=== PATIENT | male | born 1965 | race Caucasian/White ===

== ENCOUNTER 2019-06-29 22:48 | Emergency (ER) | payer OTHER, SELFPAY ==
[2019-06-29 23:04] VITALS: BP 133/82; PULSE 80; RESP 16; TEMP 37.2; O2SAT 100
--- NOTE | 2019-06-29 23:24 | ED.SKABFB ---
HPI - Skin/Abscess/Foreign Bdy General Chief complaint: Skin/Abscess/Foreign Body Stated complaint: boil in groin Time Seen by Provider: 06/29/19 23:09 Source: patient and RN notes reviewed Mode of arrival: ambulatory Limitations: no limitations History of Present Illness HPI narrative: Pt is a 53 y/o male who presents to the ED with c/o boil on his rt medial thigh. He notes that he was evaluated by his vmware engineer for the boil last week, and states that he was advised it wasn't infectious. Pt notes that his physician poked the wound twice during the evaluation. He currently reports pain around the boil, but denies any fever, chills, or other symptoms. He states that he recently finished 3 rounds of antibiotics in May. MD complaint: abscess/boil Location: RLE (rt medial thigh) Associated symptoms: other (pain around the boil on medial rt thigh) Treatments prior to arrival: none Related Data Allergies Allergy/AdvReac Type Severity Reaction Status Date / Time nystatin Allergy Unknown Verified 05/25/14 13:12 Review of Systems Review of Systems: All systems reviewed & are unremarkable except as noted in HPI and below Constitutional: Constitutional: Denies chills and Denies fever(s) Integumentary/Breasts: Skin/Breast: Reports skin pain (pain around boil on rt medial thigh) and Reports other (boil on rt medial thigh) PMFSH Past Medical History Medical History Back pain Diverticulitis Family history- stomach cancer GERD (gastroesophageal reflux disease) High cholesterol History of rectal polyps Irritable bowel syndrome with constipation Kidney stones Peripheral neuropathy Surgical History Surgical History History of spinal fusion Hx of appendectomy Hx of cholecystectomy Family History Family History (Updated 05/25/14 @ 13:25 by DOCTOR UNKNOWN) Mother Hypertension Family history of anemia Father Family history of chronic obstructive pulmonary disease Other Diabetes mellitus Social History Social History Years smoked: 25 Smoking status: Former smoker Tobacco type: cigarettes Alcohol intake: current Drinks per week: 1 Substance use type: marijuana Exam Narrative: Exam Narrative: GENERAL: Well-appearing, well-nourished, and in no acute distress. HEAD: Normocephalic, atraumatic. EXTREMITIES: Normal range of motion. No edema. SKIN: Warm, dry, no rash. Sebaceous cyst right inner thigh with slight redness but no warmth. NEURO: Alert and oriented x3. PSYCH: Normal mood and affect. Course Course Emergency Course: Needle aspiration sebaceous cyst with some contents expressed. No evidence of active infection. There is no cellulitis surrounding the cystic region, recommend warm compresses and he can attempt to continue express material. Recommend follow-up with his vmware engineer for excision if continued irritation. Vital Signs Vital signs: Vital Signs Temperature 99.0 F 06/29/19 23:04 Pulse Rate 80 06/29/19 23:04 Respiratory Rate 16 06/29/19 23:04 Blood Pressure 133/82 06/29/19 23:04 Pulse Oximetry 100 06/29/19 23:04 Temperature 99.0 F 06/29/19 23:04 Pulse Rate 80 06/29/19 23:04 Respiratory Rate 16 06/29/19 23:04 Blood Pressure 133/82 06/29/19 23:04 Pulse Oximetry 100 06/29/19 23:04 Procedures Abscess I/D right thigh: Date of Incision: 06/29/19 Time of Incision: 23:30 Technique: needle aspiration Irrigation: No Packing used?: none I&D Results: Other (cystic material) Discharge Plan Discharge Clinical Impression: Sebaceous cyst Patient Disposition: Home, Self-Care Condition: Stable Instructions: Cyst (ED) Additional Instructions: Return to the ER if you develop redness with warmth to touch around the cyst, you have fever over 100.4F, you de
[2019-06-30 00:06] VITALS: BP 133/89; PULSE 78; RESP 19; O2SAT 97
== END 2019-06-30 00:05 | disposition home or self-care (01) ==
PROVIDERS: Emergency Provider Emergency Medicine; PCP Internal Medicine
DX: L72.3 Sebaceous cyst (principal); K21.9 Gastro-esophageal reflux disease without esophagitis; E78.00 Pure hypercholesterolemia, unspecified; Z87.19 Personal history of other diseases of the digestive system; K58.1 Irritable bowel syndrome with constipation; Z87.442 Personal history of urinary calculi; G62.9 Polyneuropathy, unspecified; Z98.1 Arthrodesis status; F17.210 Nicotine dependence, cigarettes, uncomplicated
CPT/HCPCS: 10080; 10160; 99282

== ENCOUNTER 2019-10-27 07:48 | Outpatient (CLI) | payer OTHER, SELFPAY ==
--- NOTE | ~2019-10-27 | XR_ITS ---
EXAMINATION: XR chest 2V DATE: 10/27/2019 08:15 INDICATION: Check bite, unexpected weight loss TECHNIQUE: PA and lateral views of the chest are obtained. COMPARISON: 04/07/2018 FINDINGS: The lungs are free of acute opacities. There is no pleural effusion or pneumothorax. The ca rdiomediastinal silhouette is normal. There is mild chronic anterior wedging near the thoracolumbar j unction, likely physiologic. Cholecystectomy clips are noted. IMPRESSION: 1. No acute cardiopulmonary abnormality. Reviewed, dictated and finalized at location A.
[2019-10-27 08:07] LABS: Add Urine Microscopic? NO; Appearance Urine Clear (Clear); Basophils Absolute Auto 0.03 K/mm3 (0.00-0.10); Basophils Percent Auto 0.5 % (0.0-1.0); Bilirubin Urine Negative (Negative); Blood Urine Negative (Negative); Color Urine Yellow (Yellow); Eosinophils Absolute Auto 0.14 K/mm3 (0.02-0.50); Eosinophils Percent Auto 2.3 % (1.0-6.0); Glucose Urine UA Negative (Negative); Hematocrit 45.9 % (40.0-54.0); Hemoglobin 15.6 g/dL (14.0-18.0); Immature Granulocyte Absolute 0.01 K/mm3 (0.00-0.00); Immature Granulocyte Percent A 0.2 % (0.0-0.0); Ketones Urine Negative (Negative); Leukocyte Esterase Ur Negative LEU/UL (Negative); Lymphocytes Absolute Auto 1.82 K/mm3 (1.10-4.50); Lymphocytes Percent Auto 30.4 % (18.0-42.0); Mean Corpuscular Hemoglobin 30.6 pg (27.0-31.0); Mean Corpuscular Volume 90.2 fL (78.0-102.0); Mean Platelet Volume 9.6 fl (8.7-11.0); Monocytes Absolute Auto 0.54 K/mm3 (0.10-0.90); Neutrophils Absolute Auto 3.5 K/mm3 (1.7-7.2); Neutrophils Percent Auto 57.6 % (50.0-70.0); Nitrate Urine Negative (Negative); Platelet Count Result 255 K/mm3 (150-420); Protein Urine Negative (Negative); Red Blood Count 5.09 M/mm3 (4.70-6.10); Red Cell Distribution Width 12.1 % (11.6-14.4); Specific Grav Ur <= 1.005 (1.010-1.020); Urobilinogen Urine 0.2 mg/dL (0.2-1.0); pH Urine 6.5 (5.0-8.0)
[2019-10-27 11:34] LABS: Alanine Aminotransferase 34 U/L (16-63); Albumin Level 4.2 g/dL (3.4-5.0); Alkaline Phosphatase 73 U/L (46-116); Anion Gap 11.1 mmol/L (7-16); Aspartate Amino Transferase 23 U/L (15-37); Blood Urea Nitrogen 10 mg/dL (7-18); Calcium 9.6 mg/dL (8.5-10.1); Carbon Dioxide 30 mmol/L (21-32); Chloride 104 mmol/L (98-108); Cholesterol 176 mg/dL (0-200); Estimated Glomerular Filt Rate > 60; Free T3 2.89 pg/mL (2.18-3.98); Free T4 Free Thyroxine 1.17 ng/dL (0.76-1.46); Glucose 90 mg/dL (70-99); HDL Direct 43 mg/dL (40-60); LDL Cholesterol Calculated 119 mg/dL (<130); Osmolality Calculated 291 mOsm/kg (285-295); Potassium 4.1 mmol/L (3.5-5.1); Prostate Specific Antigen 1.5 ng/mL (< OR = 4.0); Sodium 141 mmol/L (136-145); Thyroid Stimulating Hormone 1.09 uIU/mL (0.36-3.74); Triglycerides 71 mg/dL (0-150)
[2019-10-29 22:12] LABS: Immunoglobulin A 229 mg/dL (47-310); Immunoglobulin G 956 mg/dL (600-1640); Immunoglobulin M 71 mg/dL (50-300)
[2019-10-30 15:29] LABS: Lyme Disease Ab (IgM), Blot Negative (Negative); Lyme Disease Ab(IgG), Blot Negative (Negative)
== END 2019-10-27 07:49 | disposition home or self-care (01) ==
PROVIDERS: PCP Internal Medicine; Visit Provider Internal Medicine
DX: Z00.00 Encounter for general adult medical examination without abnormal findings (principal); R63.4 Abnormal weight loss; T14.8XXA Other injury of unspecified body region, initial encounter; B99.8 Other infectious disease; Z12.5 Encounter for screening for malignant neoplasm of prostate
CPT/HCPCS: 36415; 71046; 80053; 80061; 81003; 82784; 84153; 84439; 84443; 84481; 85025; 86617; 86769; G0103

== ENCOUNTER 2020-08-21 07:45 | Outpatient (CLI) | payer OTHER, SELFPAY ==
--- NOTE | ~2020-08-21 | US_ITS ---
US axilla RT 08/21/2020 08:12 Indication: Palpable right axillary lump Procedure: High-resolution ultrasound of the right axilla Comparison: No prior studies for comparison. Findings: As normal heterogeneous echotexture in the right axilla. No discrete mass or fluid collecti on is identified. Impression: 1: Normal right axillary ultrasound. BI-RADS CATEGORY 1 - NEGATIVE Reviewed, dictated and finalized at location A. Impression: 1: Normal right axillary ultrasound. BI-RADS CATEGORY 1 - NEGATIVE
== END 2020-08-21 07:46 | disposition home or self-care (01) ==
LOC: CHSIMG 07:47
PROVIDERS: PCP Internal Medicine; Visit Provider Internal Medicine
DX: M79.89 Other specified soft tissue disorders (principal)
CPT/HCPCS: 76882

== ENCOUNTER 2020-09-11 07:03 | Emergency (ER) | payer OTHER, SELFPAY ==
[2020-09-11 07:12] VITALS: BP 139/80; PULSE 90; RESP 20; TEMP 36.8; O2SAT 100
--- NOTE | 2020-09-11 07:22 | ED.WOUNDLAC ---
HPI - Wound/Laceration General Chief Complaint: Wound/Laceration Stated Complaint: pt was stung by a bug yesterday. now has swelling Time Seen by Provider: 09/11/20 07:09 Source: RN notes reviewed History of Present Illness HPI narrative: Patient presents to emergency department from home for insect sting. Patient states that last night he was stung in the left posterior upper arm he states that he felt something sting him and went to slap it and swatted away large body he is unsure of what it was states he initially had some mild redness that improved and then again this morning had redness and swelling around the area he denies any swelling of lips or tongue or shortness of breath denies any other trauma or injury states he does not take any medication for the symptoms Related Data Home Medications Medication Instructions Recorded Confirmed lactobacillus combination no.8 3 3,000 mmu cells PO DAILY 01/17/20 01/17/20 billion cell capsule Allergies Allergy/AdvReac Type Severity Reaction Status Date / Time nystatin Allergy Unknown Itching Verified 09/11/20 07:15 Review of Systems Review of Systems: Narrative: Gen.: Denies fevers or chills HEENT denies swelling of the lips or tongue Respiratory: Denies shortness of breath Musculoskeletal: Denies joint pain or swelling Neuro: Denies numbness, tingling, weakness Skin: See HPI Endo: Denies DM Except as documented, all other systems reviewed and negative [facility] Past Medical History Medical History Abdominal pain Back pain Colon, diverticulosis Diverticulitis Family history- stomach cancer GERD (gastroesophageal reflux disease) High cholesterol History of rectal polyps Irritable bowel syndrome with constipation Kidney stones Peripheral neuropathy Surgical History Surgical History History of spinal fusion Hx of appendectomy Hx of cholecystectomy Family History Family History Mother Hypertension Family history of anemia Father Family history of chronic obstructive pulmonary disease Other Diabetes mellitus Social History Social History Years smoked: 25 Smoking status: Former smoker Tobacco type: cigarettes Alcohol intake: current Drinks per week: 1 Substance use type: marijuana Gender identity (if verbalized by the patient): Male Exam Narrative: Exam Narrative: APPEARANCE: No acute distress, nontoxic, resting in bed EYES: EOMI HEENT: Normocephalic, atraumatic, no swelling of lips or tongue RESPIRATORY: No respiratory distress Clear to auscultation bilaterally with no rhonchi wheezing or rales. CARDIOVASCULAR: Regular rate and rhythm without murmurs rubs or gallops. MUSCULOSKELETAl: Moves all extremities. No clubbing, cyanosis or edema. NEURO: Awake and alert. Following commands, speech normal, no focal deficits SKIN:: Warm, dry. Left posterior upper arm has a small circular area consistent with an area of insect sting with some mild surrounding erythema there is no blistering or drainage from the wound PSYCHIATRIC: Normal affect/mood, Course Course Emergency Course: Discussed with patient results of workup and diagnosis. Discussed need for follow-up with primary care, proper use of medication, and reasons to return to the emergency department. Patient understands and agrees to current treatment plan Vital Signs Vital signs: Vital Signs Temperature 98.2 F 09/11/20 07:12 Pulse Rate 90 09/11/20 07:12 Respiratory Rate 20 09/11/20 07:12 Blood Pressure 139/80 09/11/20 07:12 Pulse Oximetry 100 09/11/20 07:12 Temperature 98.2 F 09/11/20 07:12 Pulse Rate 90 09/11/20 07:12 Respiratory Rate 20 09/11/20 07:12 Blood Pressure 139/80 09/11/20 07:12 Pulse Oximetry 100 09/11/20 07:[address]
[2020-09-11] MEDS: predniSONE 20 MG TABLET 60 MG PO (07:43)
[2020-09-11] MEDS: LORATADINE 10 MG TABLET PO (07:43)
[2020-09-11 07:47] VITALS: BP 138/80; PULSE 88; RESP 20; O2SAT 99
== END 2020-09-11 07:53 | disposition home or self-care (01) ==
PROVIDERS: Emergency Provider Emergency Medicine; PCP Internal Medicine
DX: T63.481A Toxic effect of venom of other arthropod, accidental (unintentional), initial encounter (principal); K21.9 Gastro-esophageal reflux disease without esophagitis; E78.00 Pure hypercholesterolemia, unspecified; K58.1 Irritable bowel syndrome with constipation; G62.9 Polyneuropathy, unspecified; Z98.1 Arthrodesis status; Z87.891 Personal history of nicotine dependence; Z87.442 Personal history of urinary calculi; Z87.19 Personal history of other diseases of the digestive system
CPT/HCPCS: 99283; A9270; J7512

== ENCOUNTER 2020-09-18 07:36 | Emergency (ER) | payer OTHER, SELFPAY ==
--- NOTE | ~2020-09-18 | CT_ITS ---
EXAMINATION: CT abdomen pelvis w con DATE: 09/18/2020 09:17 INDICATION: Upper abdominal pain. TECHNIQUE: Computed tomography (CT) of the abdomen and pelvis was performed with 100 mL Omnipaque 350 intravenous contrast. Automated exposure control and iterative reconstruction technique were employe d. The dose-length product was 736.00 mGy-cm. COMPARISON: CT abdomen and pelvis 02/04/2017 FINDINGS: The visualized portions of the lung bases demonstrate mild atelectasis. A calcified left pepper ng nodule and calcified left hilar lymph nodes are consistent with old granulomatous disease. No pleu ral effusion. The heart size is normal. No pericardial effusion. The liver is normal. There are parker es of cholecystectomy. Calcifications in the spleen are consistent with old granulomatous disease. Th e pancreas, adrenal glands, and left kidney are normal. There is a 2 mm right kidney stone. The prost ate is mildly enlarged. There are no dilated loops of bowel. The appendix is not visualized. There ar e no pathologically enlarged lymph nodes. There is no free intraperitoneal fluid. There is chronic mi ld fat stranding in the small bowel mesentery, likely not clinically significant. There are changes o f anterior and posterior fusion procedures at L4-L5. There is mild chronic anterior wedging of multip le lower thoracic vertebral bodies. IMPRESSION: 1. Small nonobstructing right kidney stone. Reviewed, dictated and finalized at location A.
[2020-09-18 07:55] VITALS: BP 122/75; PULSE 88; RESP 18; TEMP 36.4; O2SAT 100
[2020-09-18] MEDS: SODIUM CHLORIDE 0.9% IV 1,000 ML 999 ML IV CONT (08:35)
[2020-09-18 08:46] LABS: Basophils Percent Auto 0.4 % (0.2-1.2); Eosinophils Absolute Auto 0.2 K/mm3 (0-0.3); Eosinophils Percent Auto 1.8 % (0-4.4); Hematocrit 48.4 % (42.0-52.0); Hemoglobin 16.1 g/dL (14.0-18.0); Immature Granulocyte Absolute 0.11 K/mm3 (0.00-0.031); Immature Granulocyte Percent A 1.2 % (0-0.5); Lymphocytes Absolute Auto 2.16 K/mm3 (0.9-3.2); Lymphocytes Percent Auto 23.2 % (18.3-44.2); Mean Corpuscular HGB Conc 33.3 g/dl (32-36); Mean Corpuscular Hemoglobin 30.4 pg (26-34); Mean Corpuscular Volume 91.3 fl (80-100); Mean Platelet Volume 9.6 fl (7.4-10.4); Monocytes Absolute Auto 0.9 K/mm3 (0.1-0.6); Monocytes Percent Auto 9.8 % (2.6-8.5); Neutrophils Absolute Auto 5.9 K/mm3 (1.3-6.7); Neutrophils Percent Auto 63.6 % (45.5-73.1); Platelet Count Result 272 k/mm3 (150-375); Red Cell Distribution Width 12.4 % (11.5-14.5); White Blood Count 9.3 K/mm3 (4.5-10.0)
--- NOTE | 2020-09-18 08:47 | ED.ABDPAIN ---
HPI - Abdominal Pain General Chief Complaint: Abdominal Pain Stated Complaint: upper abd pain several days Time Seen by Provider: 09/18/20 08:19 Source: patient Mode of arrival: ambulatory Limitations: no limitations History of Present Illness HPI narrative: Patient is 54 years old white male presents with epigastric pain started 3 days ago, intermittent, been constant for the last few hours. History of GERD has been on Protonix 40 mg once a day for over 1 year, history of esophageal candidiasis been treated in the past and was cured, history of cholecystectomy and appendectomy. Patient could not follow-up with his assembly operator for EGD because of the COVID-19 pandemic. Patient denies any fever, chills, nausea, vomiting. The pain gets better sometimes and comes, denies any aggravating factors. Related Data Home Medications Medication Instructions Recorded Confirmed lactobacillus combination no.8 3 3,000 mmu cells PO DAILY 01/17/20 01/17/20 billion cell capsule Allergies Allergy/AdvReac Type Severity Reaction Status Date / Time nystatin Allergy Unknown Itching Verified 09/11/20 07:15 Review of Systems Review of Systems: Narrative: CONSTITUTIONAL: Denies fever, chills, or sweats. EYES: Denies visual changes, redness, or discharge. ENT: Denies rhinorrhea, congestion, sore throat, or otalgia. CARDIOVASCULAR: Denies chest pain, palpitations, or edema. RESPIRATORY: Denies cough or dyspnea. GASTROINTESTINAL: Denies abdominal pain, nausea, vomiting, or diarrhea. GENITOURINARY: Denies dysuria or hematuria. SKIN: Denies rash or itching. MUSCULOSKELETAL: Denies back pain, joint pain, or myalgia. NEUROLOGIC: Denies headache, numbness, or weakness. PSYCHIATRIC: Denies anxiety or depression. [facility] Past Medical History Medical History Abdominal pain Back pain Colon, diverticulosis Diverticulitis Family history- stomach cancer GERD (gastroesophageal reflux disease) High cholesterol History of rectal polyps Irritable bowel syndrome with constipation Kidney stones Peripheral neuropathy Surgical History Surgical History History of spinal fusion Hx of appendectomy Hx of cholecystectomy Family History Family History Mother Hypertension Family history of anemia Father Family history of chronic obstructive pulmonary disease Other Diabetes mellitus Social History Social History Years smoked: 25 Smoking status: Former smoker Tobacco type: cigarettes Alcohol intake: current Drinks per week: 1 Substance use type: marijuana Gender identity (if verbalized by the patient): Male Exam Narrative: Exam Narrative: General appearance: Well-developed, well-nourished Skin: Normal color Head: Normocephalic, nontraumatic Eyes: Clear conjunctiva ENT: Oropharynx normal, ears normal, nose normal Neck: Supple, nontender Chest and respiratory: Airway patent, no respiratory distress, no accessory muscle use Heart: Regular rate/rhythm Abdomen: Soft, mild epigastric tenderness, no organomegaly, quiet bowel sounds Vascular: Normal peripheral pulses, normal capillary refill. Musculoskeletal: Normal range of motion, nontender back Neurologic: Alert and oriented ?3, WEBMASTER is normal as tested, no gross motor deficit Course Course Emergency Course: Stable Vital Signs Vital signs: Vital Signs Temperature 36.4 C L 09/18/20 07:55 Pulse Rate 88 09/18/20 07:55 Respiratory Rate 18 09/18/20 07:55 Blood Pressure 122/75
[2020-09-18 08:49] LABS: Add Urine Microscopic? NO; Appearance Urine Clear (Clear); Bilirubin Urine Negative (Negative); Blood Urine Negative (Negative); Color Urine Straw (Yellow); Glucose Urine UA Negative (Negative); Ketones Urine Negative (Negative); Leukocyte Esterase Ur Negative LEU/UL (Negative); Nitrate Urine Negative (Negative); Protein Urine Negative (Negative); Specific Grav Ur 1.006 (1.001-1.035); Urobilinogen Urine Negative mg/dL (<2.0)
[2020-09-18 09:00] LABS: Alanine Aminotransferase 26 U/L (4-50); Albumin Level 4.6 g/dL (3.5-5.1); Alkaline Phosphatase 62 U/L (38-126); Anion Gap 5 mmol/L (8-16); Aspartate Amino Transferase 30 U/L (17-59); Bilirubin,Total 0.9 mg/dL (0.2-1.3); Blood Urea Nitrogen 12 mg/dL (9-20); Calcium 10.1 mg/dL (8.4-10.2); Carbon Dioxide 32 mmol/L (22-30); Chloride 104 mmol/L (98-107); Estimated CRCL calculation 75 ml/min; Estimated Glomerular Filt Rate > 60; Glucose 99 mg/dL (75-110); Lipase 36 U/L (23-300); Potassium 3.7 mmol/L (3.4-5.0); Sodium 141 mmol/L (137-145)
== END 2020-09-18 10:09 | disposition home or self-care (01) ==
PROVIDERS: Emergency Provider Emergency Medicine; PCP Internal Medicine
DX: R10.13 Epigastric pain (principal); K21.9 Gastro-esophageal reflux disease without esophagitis; E78.00 Pure hypercholesterolemia, unspecified; Z87.19 Personal history of other diseases of the digestive system; K58.1 Irritable bowel syndrome with constipation; Z87.442 Personal history of urinary calculi; G62.9 Polyneuropathy, unspecified; Z98.1 Arthrodesis status; Z87.891 Personal history of nicotine dependence; N20.0 Calculus of kidney
CPT/HCPCS: 36415; 74177; 80053; 81003; 83690; 85025; 96360; 99284; J7030; Q9967

== ENCOUNTER → 2020-10-03 01:10 | Outpatient (CLI) | payer OTHER, SELFPAY ==
[2020-10-03 17:24] LABS: SARS-CoV-2 RNA PCR Negative
== END ==
PROVIDERS: PCP Internal Medicine; Visit Provider Internal Medicine Gastroenterology
DX: Z01.812 Encounter for preprocedural laboratory examination (principal); Z20.822 Contact with and (suspected) exposure to COVID-19
CPT/HCPCS: C9803; U0003; U0005

== ENCOUNTER 2020-10-06 | Day surgery (SDC) | payer OTHER, SELFPAY ==
[2020-09-21 16:14] VITALS: BMI 30.4
[2020-10-06 06:45] VITALS: BP 115/80; PULSE 91; RESP 15; TEMP 36.4; O2SAT 100; BMI 29.5
[2020-10-06] MEDS: LACTATED RINGERS 1,000 ML 150 ML IV CONT (06:55)
--- NOTE | 2020-10-06 08:24 | PM.HPGS ---
History of Present Illness History of Present Illness Consent: Risks, benefits, and alternatives have been discussed and questions answered. Patient agrees to proceed with procedure. Chief complaint: Family Hx of Col ca ,GERD Narrative: Tyler Mendoza is a 54 year old male with gerd on protonix, last colonoscopy 2015, brother had colon cancer. Review of Systems Constitutional: Constitutional: Denies headache(s) and Denies weakness Eyes: Eyes: Denies blurry vision ENT: Reports Normal hearing present, Denies headache(s) and Denies neck pain Cardiovascular: Cardiovascular: Denies chest pain and Denies dyspnea Respiratory: Respiratory: Denies dyspnea Gastrointestinal: Gastrointestinal: Reports no additional gastrointestinal complaints Genitourinary: Genitourinary: Denies dysuria Musculoskeletal: Musculoskeletal: Denies neck pain Integumentary/Breasts: Skin/Breast: Denies dry skin Neurologic: Reports Normal hearing present, Denies headache(s) and Denies weakness Psychiatric: Psychiatric: Denies anxiety Endocrine: Endocrine: Denies change in body appearance Hematologic/Lymphatic: Hematologic/Lymphatic: Denies easy bleeding Allergic/Immunologic: Allergic/Immunologic: Denies urticaria PMF Past Medical History Medical History (Updated 10/06/20 @ 08:38 by Adalid Garber MD) Abdominal pain Back pain Colon, diverticulosis Diverticulitis Family history of colon cancer Family history- stomach cancer GERD (gastroesophageal reflux disease) High cholesterol History of rectal polyps Irritable bowel syndrome with constipation Kidney stones Peripheral neuropathy Surgical History Surgical History History of spinal fusion Hx of appendectomy Hx of cholecystectomy Family History Family History Mother Hypertension Family history of anemia Father Family history of chronic obstructive pulmonary disease Other Diabetes mellitus Social History Social History Smoking packs per day: 1 Smoking cigarettes per day: 20.0 Years smoked: 15 Smoking pack-years: 15.00 Smoking status: Former smoker Tobacco type: cigarettes Alcohol intake: current Drinks per week: 1 Alcohol use details: RARELY Substance use: current Substance use type: marijuana Other substance usage details: NEEDED FOR PAIN AND SLEEP Living arrangements: with family Gender identity (if verbalized by the patient): Male Spiritual care concerns: No Meds Home Medications and Allergies Home Medications Medication Instructions Recorded Confirmed Type fluticasone furoate 27.5 2 spray NASAL DAILY #5.9 ml 03/16/19 10/06/20 Rx mcg/actuation nasal spray,suspension pravastatin 10 mg tablet 10 mg PO DAILY #30 tablet 03/16/19 10/06/20 Rx lactobacillus combination no.8 3 3,000 mmu cells PO DAILY 01/17/20 10/06/20 History billion cell capsule pantoprazole 40 mg PO DAILY 09/21/20 10/06/20 History Allergies Allergy/AdvReac Type Severity Reaction Status Date / Time nystatin Allergy Unknown Itching Verified 10/06/20 06:43 Vital Signs Vital Signs - 24 hr 10/06/20 06:45 Temperature 97.6 F Pulse Rate 91 Respiratory Rate 15 Blood Pressure 115/80 Pulse Oximetry 100 Exam Const: General: comfortable and no acute distress HENMT: General nose exam: Normal nares present Eyes: General: appearance normal, both eyes and all related structures Neck: Neck: no JVD Resp: Auscultation: clear to auscultation bilaterally Cardio: Rate: regular rate Rhythm: regular rhythm GI: Inspection: non-distended GI Palp: Yes Soft to palpation Skin: General skin exam: normal color Neuro: General: gait normal Speech: normal speech Extrem: General: normal to inspection Psych: Mental Status: mental status grossly normal Assessment an
[2020-10-06 08:42] VITALS: BP 80/53; PULSE 72; RESP 19; O2SAT 95
[2020-10-06 08:52] VITALS: BP 82/54; PULSE 69; RESP 19; O2SAT 96
[2020-10-06 09:02] VITALS: BP 97/67; PULSE 69; RESP 17; O2SAT 98
== END 2020-10-06 09:12 | disposition home or self-care (01) ==
PROVIDERS: PCP Internal Medicine; Visit Provider Internal Medicine Gastroenterology
PROC: 0DJ08ZZ Inspection of Upper Intestinal Tract, Via Natural or Artificial Opening Endoscopic (ICD-10-PCS; CPT 43235; principal; 2020-10-06 08:00)
DX: Z12.11 Encounter for screening for malignant neoplasm of colon (principal); K64.8 Other hemorrhoids; Z80.0 Family history of malignant neoplasm of digestive organs; K21.9 Gastro-esophageal reflux disease without esophagitis; R10.13 Epigastric pain; K29.50 Unspecified chronic gastritis without bleeding; K63.5 Polyp of colon; E78.00 Pure hypercholesterolemia, unspecified; K58.1 Irritable bowel syndrome with constipation; G62.9 Polyneuropathy, unspecified; Z87.891 Personal history of nicotine dependence; F12.90 Cannabis use, unspecified, uncomplicated
CPT/HCPCS: 45385; 43239; 88305; C9803; J2001; J2704; J7120; U0003; U0005

== ENCOUNTER → 2021-06-11 09:43 | Outpatient (CLI) | payer OTHER, SELFPAY ==
--- NOTE | ~2021-06-11 | US_ITS ---
US axilla RT DATE: 06/11/2021 10:02 INDICATION: Localized swelling, lump, right axilla TECHNIQUE: Real-time and color flow imaging of the right axillary soft tissues COMPARISON: Comparison to the prior right axillary ultrasound 08/21/2020 FINDINGS: No suspicious mass or shadowing is detected. IMPRESSION: Negative Reviewed, dictated and finalized at Location [facility]. Reviewed, dictated and finalized at location A. AND [employer] EQUIPMENT REPAIRER IMPRESSION: Negative
== END ==
PROVIDERS: PCP Internal Medicine; Visit Provider Surgery
DX: R22.31 Localized swelling, mass and lump, right upper limb (principal)
CPT/HCPCS: 76882

== ENCOUNTER 2021-09-04 16:36 | Emergency (ER) | payer OTHER, SELFPAY ==
--- NOTE | ~2021-09-04 | CT_ITS ---
EXAMINATION: CT soft tissue neck w con DATE: 09/04/2021 20:44 INDICATION: Right neck swelling and pain. History of trigeminal neuralgia. TECHNIQUE: Computed tomography (CT) of the neck was performed with 75 mL Omnipaque-300 intravenous co ntrast. Automated exposure control and iterative reconstruction technique were employed. The dose-osbaldo gth product was 626.05 mGy-cm. COMPARISON: None FINDINGS: 2.2 cm right thyroid nodule The submandibular and parotid glands are symmetric. There is no cervic al lymphadenopathy. There are no masses identified. The superior mediastinum is unremarkable. T he airway is unremarkable. Parapharyngeal and pre-glottic fat planes are preserved. The arch vess els bilateral carotid arteries, and bilateral vertebral arteries enhance normally. The orbits are un remarkable. Visualized sinuses and mastoid air cells are well aerated. Visualized lung parenchyma is clear. There is cervical spondylosis. IMPRESSION: 1. No acute finding in the neck. 2. 2.2 cm right thyroid nodule, recommend outpatient thyroid ultrasound for further characterization. Reviewed, dictated and finalized at location K. IMPRESSION: 1. No acute finding in the neck. 2. 2.2 cm right thyroid nodule, recommend outpatient thyroid ultrasound for fur ther characterization.
[2021-09-04 17:01] VITALS: BP 136/98; PULSE 118; RESP 20; TEMP 36.6; O2SAT 99
[2021-09-04 19:47] LABS: Basophils Percent Auto 0.3 % (0.2-1.2); Eosinophils Absolute Auto 0.1 K/mm3 (0-0.3); Eosinophils Percent Auto 0.9 % (0-4.4); Hematocrit 47.5 % (42.0-52.0); Hemoglobin 15.6 g/dL (14.0-18.0); Immature Granulocyte Absolute 0.05 K/mm3 (0.00-0.031); Immature Granulocyte Percent A 0.5 % (0-0.5); Lymphocytes Absolute Auto 1.56 K/mm3 (0.9-3.2); Lymphocytes Percent Auto 14.2 % (18.3-44.2); Mean Corpuscular HGB Conc 32.8 g/dl (32-36); Mean Corpuscular Hemoglobin 30.3 pg (26-34); Mean Corpuscular Volume 92.2 fl (80-100); Mean Platelet Volume 9.8 fl (7.4-10.4); Monocytes Absolute Auto 1.2 K/mm3 (0.1-0.6); Monocytes Percent Auto 11.3 % (2.6-8.5); Neutrophils Percent Auto 72.8 % (45.5-73.1); Platelet Count Result 238 k/mm3 (150-375); Red Blood Count 5.15 M/mm3 (4.6-6.20); Red Cell Distribution Width 12.3 % (11.5-14.5)
--- NOTE | 2021-09-04 19:51 | ED.NECK ---
HPI - Neck Pain/Injury General Chief Complaint: Neck Pain/Injury Stated Complaint: difficulty swallowing Time Seen by Provider: 09/04/21 19:10 Source: patient and RN notes reviewed Mode of arrival: ambulatory Limitations: no limitations History of Present Illness HPI Narrative: This is a 55 year old male with history of trigeminal neuralgia , hyperlipidemia who presents for evaluation of right neck pain. Patient reports he has been dealing right facial pain due to his trigeminal neuralgia since Friday. He was started on gabapentin 2 days ago. He states he has noticed painful area of swelling to right anterior neck just under his jaw today. He thinks it may be a lymph node but he is not sure. His pain is worse with swallowing. He denies fever, chills, nausea, vomiting, inability to swallow, blurred vision or focal weakness. He was seen by his dentist this past week for evaluation his right facial pain . He states he has xrays performed and he was told he does not have dental abscess. Related Data Home Medications Medication Instructions Recorded Confirmed lactobacillus combination no.8 3 3,000 mmu cells PO DAILY 01/17/20 04/23/21 billion cell capsule pantoprazole 40 mg PO DAILY 09/21/20 04/23/21 buspirone 10 mg tablet 10 mg PO BID 06/01/21 linaclotide 72 mcg capsule 72 mcg PO DAILY 06/01/21 meloxicam 15 mg tablet 15 mg PO DAILY 06/01/21 Allergies Allergy/AdvReac Type Severity Reaction Status Date / Time nystatin Allergy Unknown Itching Verified 06/01/21 08:15 Review of Systems Review of Systems: All systems reviewed & are unremarkable except as noted in HPI and below PMFSH Past Medical History Medical History Abdominal pain Back pain Colon, diverticulosis Diverticulitis Family history of colon cancer Family history- stomach cancer GERD (gastroesophageal reflux disease) High cholesterol History of rectal polyps Irritable bowel syndrome with constipation Kidney stones Peripheral neuropathy Surgical History Surgical History History of spinal fusion Hx of appendectomy Hx of cholecystectomy Family History Family History Mother Hypertension Family history of anemia Father Family history of chronic obstructive pulmonary disease Other Diabetes mellitus Social History Social History Smoking packs per day: 1 Smoking cigarettes per day: 20.0 Years smoked: 15 Smoking pack-years: 15.00 Smoking status: Former smoker Tobacco type: cigarettes Alcohol intake: current Drinks per week: 1 Alcohol use details: RARELY Substance use: current Substance use type: marijuana Other substance usage details: NEEDED FOR PAIN AND SLEEP Gender identity (if verbalized by the patient): Male Spiritual care concerns: No Exam Const: General: no acute distress and alert Orientation/consciousness: patient oriented x3 HENMT: Head: normocephalic and atraumatic Face and sinus: normal facial exam, sinuses nontender and face symmetric Mouth: Yes Normal oral and palatal mucosa present, Yes lip normal, Yes tongue normal, Yes Normal salivary glands and ducts present, Yes oropharynx normal and Yes moist mucous membranes Teeth and gingiva: gingiva normal and fair dentition Throat: posterior oropharynx normal, tonsils normal and uvula midline Eyes: Conjunctivae: conjunctivae normal Pupils: Equal, round and reactive pupils present EOM: EOMs intact bilaterally Neck: Neck: normal visual inspection and no lymphadenopathy Chest: Chest palpation & inspection: normal inspection of the chest Resp: Effort & Inspection: normal respiratory effort and no retractions Auscultation: clear to auscultation bilaterally Cardio: Rate: regular rate Rhythm: regular rhythm Hear
[2021-09-04 20:29] LABS: Alanine Aminotransferase 32 U/L (6-50); Albumin Level 4.6 g/dL (3.5-5.1); Alkaline Phosphatase 72 U/L (38-126); Anion Gap 10 mmol/L (8-16); Aspartate Amino Transferase 32 U/L (17-59); Bilirubin,Total 0.9 mg/dL (0.2-1.3); Blood Urea Nitrogen 12 mg/dL (9-20); CRP 4.8 mg/dL (<1.0); Calcium 9.8 mg/dL (8.4-10.2); Carbon Dioxide 31 mmol/L (22-30); Chloride 99 mmol/L (98-107); Estimated Glomerular Filt Rate > 60; Glucose 94 mg/dL (65-110); Potassium 3.9 mmol/L (3.4-5.0); Sodium 140 mmol/L (137-145)
[2021-09-04] MEDS: PANTOPRAZOLE 40 MG TABLET PO (21:49)
[2021-09-04] MEDS: GABAPENTIN 100 MG CAPSULE 200 MG PO (21:50)
[2021-09-04 21:57] VITALS: BP 134/83; PULSE 80; RESP 16; TEMP 36.6; O2SAT 100
== END 2021-09-04 22:00 | disposition home or self-care (01) ==
PROVIDERS: Emergency Provider General Practice; PCP Internal Medicine
DX: M54.2 Cervicalgia (principal); E04.1 Nontoxic single thyroid nodule; Z87.891 Personal history of nicotine dependence
CPT/HCPCS: 36415; 70491; 80053; 85025; 86140; 99284; A9270; Q9967

== ENCOUNTER 2021-09-07 08:17 | Outpatient (CLI) | payer OTHER, SELFPAY ==
--- NOTE | ~2021-09-07 | US_ITS ---
EXAMINATION: US thyroid DATE: 09/07/2021 08:45 INDICATION: Thyroid nodule. TECHNIQUE: Multiple ultrasound images of the thyroid were obtained. COMPARISON: CT neck 09/04/2021 FINDINGS: The right thyroid lobe measures 6.3 x 2.0 x 2.1 cm. The left thyroid lobe measures 5.6 x 1.7 x 2.0 c m. In the right thyroid lobe, there is a 2.1 cm solid, hypoechoic, [id number]-[id number] nodule with sabine h margin without echogenic foci (TI-RADS TR4). In the left thyroid lobe, there is a 7 mm mixed cystic and solid, hypoechoic, [id number]-[id number]-[id number] nodule with smooth margin without echogenic foci (TR3). In th e left thyroid lobe, there is a 6 mm solid, hypoechoic, [id number]-[id number] nodule with smooth margin wit hout echogenic foci (TR4). IMPRESSION: 1. Thyroid nodules. Ultrasound-guided fine-needle aspiration of the 2.1 cm right thyroid nodule is re commended. Reviewed, dictated and finalized at location A. IMPRESSION: 1. Thyroid nodules. Ultrasound-guided fine-needle aspiration of the 2.1 cm righ t thyroid nodule is recommended.
== END 2021-09-07 08:18 | disposition home or self-care (01) ==
LOC: CHSIMG 08:18
PROVIDERS: PCP Internal Medicine; Visit Provider Internal Medicine
DX: E04.1 Nontoxic single thyroid nodule (principal)
CPT/HCPCS: 76536

== ENCOUNTER 2022-05-05 06:26 | Emergency (ER) | payer OTHER, SELFPAY ==
--- NOTE | ~2022-05-05 | XR_ITS ---
XR foot RT min 3V DATE: 05/05/2022 06:58 INDICATION: Right lateral foot pain, heel pain TECHNIQUE: 4 views COMPARISON: None FINDINGS: Posterior calcaneal enthesopathy. Slight plantar calcaneal enthesopathy. Degenerative change at the calcaneal navicular joint. No fracture or dislocation, periosteal reaction or bone destruction is detected. IMPRESSION: Posterior and slight plantar calcaneal enthesopathy Degenerative change at the calcaneal navicular joint Reviewed, dictated and finalized at location A. [employer]
[2022-05-05 06:30] VITALS: BP 140/80; PULSE 84; RESP 16; TEMP 36.4; O2SAT 100
--- NOTE | 2022-05-05 06:52 | ED.LOWEXIN ---
HPI - Extremity Injury (Lower) General Chief Complaint: Extremity Injury, Lower Stated Complaint: right heel pain Time Seen by Provider: 05/05/22 06:41 History of Present Illness HPI Narrative: This is a 56-year-old male with past medical history of hyperlipidemia, presenting to the emergency department complaining of right-sided heel soreness for the past 4 days. The patient [place]. Later that day, he noted soreness of the right foot. Today he noted the pain returned. He rates it 07/29 without radiation. He denies fevers, chills or spreading erythema. Related Data Home Medications Medication Instructions Recorded Confirmed lactobacillus combination no.8 3 3,000 mmu cells PO DAILY 01/17/20 04/23/21 billion cell capsule (Adult Probiotic) pantoprazole 40 mg PO DAILY 09/21/20 04/23/21 buspirone 10 mg tablet 10 mg PO BID 06/01/21 linaclotide 72 mcg capsule 72 mcg PO DAILY 06/01/21 (Linzess) meloxicam 15 mg tablet 15 mg PO DAILY 06/01/21 Allergies Allergy/AdvReac Type Severity Reaction Status Date / Time nystatin Allergy Unknown Itching Verified 05/05/22 06:36 Review of Systems Review of Systems: CONSTITUTIONAL: Denies fever, chills, or sweats. CARDIOVASCULAR: Denies chest pain, palpitations, or edema. RESPIRATORY: Denies cough or dyspnea. GASTROINTESTINAL: Denies abdominal pain, nausea, vomiting, or diarrhea. SKIN: Denies rash or itching. MUSCULOSKELETAL: Right heel soreness denies back pain, joint pain, or myalgia. NEUROLOGIC: Denies headache, numbness, dizziness, or weakness. PSYCHIATRIC: Denies anxiety or depression. [facility] Past Medical History Medical History Abdominal pain Back pain Colon, diverticulosis Diverticulitis Family history of colon cancer Family history- stomach cancer GERD (gastroesophageal reflux disease) High cholesterol History of rectal polyps Irritable bowel syndrome with constipation Kidney stones Peripheral neuropathy Surgical History Surgical History History of spinal fusion Hx of appendectomy Hx of cholecystectomy Family History Family History Mother Hypertension Family history of anemia Father Family history of chronic obstructive pulmonary disease Other Diabetes mellitus Social History Social History Smoking packs per day: 1 Smoking cigarettes per day: 20.0 Years smoked: 15 Smoking pack-years: 15.00 Smoking status: Former smoker Tobacco type: cigarettes Alcohol intake: current Drinks per week: 1 Alcohol use details: RARELY Substance use: current Substance use type: marijuana Other substance usage details: NEEDED FOR PAIN AND SLEEP Gender identity (if verbalized by the patient): Male Spiritual care concerns: No Exam Narrative: GENERAL: Well-appearing, well-nourished, and in no acute distress. HEAD: Normocephalic, atraumatic. EYES: PERRLA and EOMI. CHEST: Clear to auscultation. No respiratory distress. No wheezes rales or rhonchi HEART: Regular rate and rhythm. No murmur heard. Normal peripheral pulses. ABDOMEN: Soft, nontender, nondistended, normal active bowel sounds. EXTREMITIES: No obvious laceration, foreign body or deformity of the right foot. There is minimal soreness to palpation over the right lateral heel. Normal range of motion. No edema. SKIN: Warm, dry, no rash. NEURO: No focal deficits. Alert and oriented x3. PSYCH: Normal mood and affect. Course Course Emergency Course: 07:30 - X-ray not concerning for fracture or retained foreign object. I do not suspect infection at this time. Discussed return and emergent precautions including signs/symptoms of cellulitis. The patient voiced understanding and is comfortable with the plan. Raymon bruce
== END 2022-05-05 08:43 | disposition home or self-care (01) ==
LOC: ANHED 07:54
PROVIDERS: Emergency Provider Preventive Medicine Aerospace Medicine; PCP Internal Medicine
DX: M79.671 Pain in right foot (principal); E78.00 Pure hypercholesterolemia, unspecified; G62.9 Polyneuropathy, unspecified; K58.1 Irritable bowel syndrome with constipation; K21.9 Gastro-esophageal reflux disease without esophagitis; Z87.19 Personal history of other diseases of the digestive system; Z87.442 Personal history of urinary calculi; Z98.1 Arthrodesis status; Z87.891 Personal history of nicotine dependence
CPT/HCPCS: 73630; 99283

== ENCOUNTER 2022-06-18 09:35 | Outpatient (CLI) | payer OTHER, SELFPAY ==
[2022-06-18 09:52] LABS: Appearance Urine Clear (Clear); Bilirubin Urine Negative (Negative); Blood Urine Negative (Negative); Color Urine Light Yellow (Yellow); Glucose Urine UA Negative (Negative); Ketones Urine Negative (Negative); Leukocyte Esterase Ur Negative (Negative); Nitrate Urine Negative (Negative); Protein Urine Negative (Negative); Specific Grav Ur <= 1.005 (1.010-1.020); Urobilinogen Urine 0.2 mg/dL (0.2-1.0)
[2022-06-18 10:05] LABS: Add Urine Microscopic? NO
[2022-06-18 10:19] LABS: Alanine Aminotransferase 41 U/L (16-63); Albumin Level 3.8 g/dL (3.4-5.0); Alkaline Phosphatase 69 U/L (46-116); Anion Gap 7 mmol/L (8-16); Aspartate Amino Transferase 23 U/L (15-37); Bilirubin,Total 0.5 mg/dL (0.00-1.00); Blood Urea Nitrogen 14 mg/dL (7-18); Carbon Dioxide 32 mmol/L (21-32); Chloride 101 mmol/L (98-108); Estimated Glomerular Filt Rate > 60; Glucose 101 mg/dL (70-99); Osmolality Calculated 290 mOsm/kg (285-295); Potassium 3.9 mmol/L (3.5-5.1); Sodium 140 mmol/L (136-145); Total Protein 6.8 g/dL (6.4-8.2)
[2022-06-18 10:21] LABS: CRP < 0.5 mg/dL (0.0-0.9)
== END 2022-06-18 09:36 | disposition home or self-care (01) ==
LOC: CHSLAB 09:37
PROVIDERS: PCP Internal Medicine; Visit Provider Internal Medicine
DX: R79.89 Other specified abnormal findings of blood chemistry (principal); L52 Erythema nodosum
CPT/HCPCS: 36415; 80053; 81003; 86038; 86140